=== PATIENT | female | born 1975 | race Caucasian/White ===

== ENCOUNTER 2017-01-16 11:35 | Emergency (ER) | payer MEDICAID ==
[2017-01-16 11:47] VITALS: BP 125/77; PULSE 73; RESP 18; TEMP 97.9; O2SAT 99
--- NOTE | 2017-01-16 12:29 | EDPHY ---
H & P Stated Complaint: LBP HPI/ROS: CHIEF COMPLAINT: Low back pain HISTORY OF PRESENT ILLNESS: Patient complains of low back pain over the past 1 week. This was sudden onset after bending over to sisal picker something. It is midline. It does not radiate. It is mild to moderate. It is located in the lower lumbar region. There is no numbness or tingling in any location. No incontinence of bowel or bladder. No retention of bowel or bladder. Pain is moderate to severe. It is worse with bending over and palpation. Minimal improvement with rest or lying on her back. She has taken [id number] anti -inflammatories with some improvement but not significant improvement. She has a history of disc bulge in the past. This was treated conservatively with rest for a period of 6-8 weeks. No surgical or physical therapy intervention at that time. She has not established with a spinal surgeon orthopedist for this. She denies any IV drug use, fever, chills, redness of the low back. No other associated complaints or modifying factors. REVIEW OF SYSTEMS: Ten systems reviewed and are negative unless otherwise noted in the HPI PAST MEDICAL HISTORY: IUD placement remotely, lumbar disc bulge last year SOCIAL HISTORY: Nonsmoker. Lives here in [facility] FAMILY HISTORY: Noncontributory EXAMINATION General Appearance: Alert, no distress Head: normocephalic, atraumatic Eyes: Pupils equal and round, no conjunctival pallor or injection ENT, Mouth: Mucous membranes moist Neck: Normal inspection, supple, non-tender Respiratory: No retractions or distress. Cardiovascular: Regular rate. Pulses intact distally symmetrically with 2+ DP and PT pulses Gastrointestinal: Abdomen is soft and nontender. No tympany rigidity Back: Tenderness in the low lumbar spine, lateral of midline. There is no bony crepitus, step-off or deformity. No tenderness to palpation of the midline portion of the spine. Neurological: A&O, nonfocal, normal gait prep patellar reflexes symmetric. Strength is 5/5 in all 4 limbs. Skin: Warm and dry, no rash. No erythema or cellulitis. No fluctuance at any location of the back Extremities: Nontender, no pedal edema Psychiatric: Mood and affect normal DIFFERENTIAL DIAGNOSES: Including but not limited to disc bulge, disc herniation, describe sugar, fracture, dislocation, sprain, strain MDM: 12:20 p.m. Acute low back pain without any evidence of acute cord compression or cauda equina. She is ambulatory without assistance. There is no weakness or deficit. Fully neuro intact. Discussed discharge home with medications for pain control muscle relaxant steroid. She is to follow up with primary care physician and Neurosurgery for further care and likely MRI. She is to return to the ER for any worsening pain, fever, weakness, sensory or motor changes. She is also to return for any incontinence of bowel or bladder, retention of bowel or bladder. She is comfortable with this plan and discharged home stable condition SUPERVISION: This patient was independently evaluated without direct examination by the attending physician. Case was discussed with attending physician. Source: Patient Exam Limitations: No limitations - Personal History LMP (Females 10-55): 1-7 Days Ago - Medical/Surgical History Hx Asthma: No Hx Chronic Respiratory Disease: No Hx Diabetes: No Hx Cardiac Disease: No Hx Renal Disease: No Hx Cirrhosis: No Hx Alcoholism: No Hx HIV/AIDS: No Hx Splenectomy or Spleen Trauma: No Other PMH: anxiety, d&c - Social History Smoking Status: Current some day smoker Constitutional: Initial Vital Signs Temperature (C) 97.9 F 01/16/17 11:43 Heart Rate 73 01/16/17 11:43 Respiratory Rate 18 01/16/17 11:43 Blood Pressure 125/77 H 01/16/17 11:43 O2 Sat (%) 99 01/16/17 11:43 O2 Delivery Mode Room Air Allergies/Adverse Reactions: No Known Allergies Allergy (Verified 01/16/17 11:42) Home Medications: Medication Instructions Recorded Cyclobenzaprine [Flexeril 10 MG 10 mg PO TID PRN #15 tab 01/16/17 (*)] methylPREDNISolone [Medrol Dose 1 each PO AD #0 ea 01/16/17 Phan] oxyCODONE HCL/ACETAMINOPHEN 1 each PO Q4-6PRN PRN #20 tablet 01/16/17 [Percocet 5-325 mg Tablet] Departure - Departure Disposition: Home, Routine, Self-Care Clinical Impression: Bulging lumbar disc Lumbar back pain Qualifiers: Chronicity: acute Back pain laterality: unspecified Sciatica presence: without sciatica Qualified Code(s): M54.5 - Low back pain Condition: Good Instructions: Lumbar Disc Herniation (ED), Low Back Strain (ED), Back Pain (ED) Additional Instructions: 1. Prescribed medications as needed 2. Follow up with primary care physician and Neurosurgery 3. Return to the ER for any worsening of pain, any fever, weakness, motor sensory changes, incontinence of bowel or bladder Referrals: [facility] [Other] - As per Instructions Antonio Renee MD [Medical Doctor] - As per Instructions Prescriptions: Cyclobenzaprine [Flexeril 10 MG (*)] 10 mg PO TID PRN #15 tab PRN Reason: Spasms methylPREDNISolone [Medrol Dose Phan] 1 each PO AD #0 ea oxyCODONE HCL/ACETAMINOPHEN [Percocet 5-325 mg Tablet] 1 each PO Q4-6PRN PRN # 20 tablet PRN Reason: Pain, Breakthrough
== END 2017-01-16 12:35 | disposition home or self-care (01) ==
DX: M51.36 Other intervertebral disc degeneration, lumbar region (principal); F17.200 Nicotine dependence, unspecified, uncomplicated

== ENCOUNTER 2017-04-09 17:33 | Emergency (ER) | payer MEDICAID ==
[2017-04-09 17:57] VITALS: TEMP 98.2
--- NOTE | 2017-04-09 18:57 | EDPHY ---
H & P Stated Complaint: back, thigh pain n/t, episodic, this episode since 1100 HPI/ROS: HPI CHIEF COMPLAINT: Back pain HISTORY OF PRESENT ILLNESS: pleasant 41 y.o Female, denies having any significant medical history except for 2-3 months of ongoing back pain. Patient reports over the past 2-3 months she has had intermittent back pain rather severe. Sharp stabbing radiates down her right leg worse than her left leg. Across her right anterior thigh. Patient reports to me that she has had multiple back adjustments by chiropractor with out any relief. She comes into the emergency room tonight as she states around noon today she developed worsening back pain. Sharp stabbing. Center of her low back lumbar region. Radiates down her gluteus bilaterally but not into her legs. At time she does field into her right anterior thigh. Does not go to her knee or foot. She denies any saddle anesthesia. Denies bowel or bladder incontinence. She does complain of bilateral leg weakness worse on the right than left. States she is having great deal difficulty of walking. Took ibuprofen prior to arrival which helped somewhat. Past Medical History: Denies significant medical history Past Surgical History: Denies significant surgical history Social History: Denies daily use drugs alcohol tobacco products. Family History: Noncontributory ROS REVIEW OF SYSTEMS: A comprehensive 10 point review of systems is otherwise negative aside from elements mentioned in the history of present illness. Exam Constitutional anxious, appears to be in pain, triage nursing summary reviewed , vital signs reviewed, awake/alert. Eyes normal conjunctivae and sclera, EOMI, PERRLA. HENT normal inspection, atraumatic, moist mucus membranes, no epistaxis, neck supple/ no meningismus, no raccoon eyes. Respiratory clear to auscultation bilaterally, normal breath sounds, no respiratory distress, no wheezing. Cardiovascular rate normal, regular rhythm, no murmur, no edema, distal pulses normal. Gastrointestinal soft, non-tender, no rebound, no guarding, normal bowel sounds, no distension, no pulsatile mass. Genitourinary no CVA tenderness. Musculoskeletal nontender palpation down midline lumbar, no midline vertebral tenderness, full range of motion, no calf swelling, no tenderness of extremities , no meningismus, good pulses, neurovascularly intact. Skin pink, warm, & dry, no rash, skin atraumatic. Neurologic awake, alert and oriented x 3, AAOx3, moves all 4 extremities equally, motor intact, sensory intact, CN II-XII intact, normal cerebellar, normal vision, normal speech. Psychiatric normal mood/affect. Heme/Lymph/Immune no lymphadenopathy. Differential Diagnosis: Includes but is not limited to in a particular order doubt acute cauda equina syndrome given no saddle anesthesia, nerve root contrast Medical Decision Making: Plan for this patient basic blood work, IV establishment fentanyl for pain control, Toradol for pain control. MRI lumbar spine without to help delineate her severe back pain. Re-evaluation: 2200: ED MRI lumbar spine reviewed. Disc disease with disc herniation at L4- L5. Additional disc herniation L5-S1. Causing nerve root compression on L5. As well as L5-S1. Most likely cause of her symptoms. Will place on pain medicine, rest, ice. Neurosurgery follow-up. Went over MRI with patient. She understands. No signs of cauda equina. Source: Patient - Personal History LMP (Females 10-55): 1-7 Days Ago Current Tetanus/Diphtheria Vaccine: Yes Current Tetanus Diphtheria and Acellular Pertussis (TDAP): Yes - Medical/Surgical History Hx Asthma: No Hx Chronic Respiratory Disease: No Hx Diabetes: No Hx Cardiac Disease: No Hx Renal Disease: No Hx Cirrhosis: No Hx Alcoholism: No Hx HIV/AIDS: No Hx Splenectomy or Spleen Trauma: No Other PMH: anxiety, d&c - Social History Smoking Status: Current some day smoker Constitutional: Initial Vital Signs Temperature (C) 36.8 C 04/09/17 17:54 Heart Rate 69 04/09/17 17:54 Respiratory Rate 16 04/09/17 17:54 Blood Pressure 135/103 H 04/09/17 17:54 O2 Sat (%) 99 04/09/17 17:54 O2 Delivery Mode Room Air Allergies/Adverse Reactions: No Known Allergies Allergy (Verified 04/09/17 17:53) Home Medications: Medication Instructions Recorded Hydrocodone/APAP 5/325 [Valencia 1 - 2 tab PO Q4H PRN #10 tab 04/09/17 5/325] Ibuprofen [Motrin (*)] 800 mg PO Q6-8PRN #10 tab 04/09/17 Medical Decision Making - Data Points Laboratory Results: Laboratory Results 04/09/17 19:30 04/09/17 19:30 04/09/17 04/09/17 19:30 19:30 WBC 5.05 10^3/uL 10^3/uL (3.80-9.50) RBC 4.49 10^6/uL 10^6/uL (4.18-5.33) Hgb 13.6 g/dL g/dL (12.6-16.3) Hct 41.7 % % (38.0-47.0) MCV 92.9 fL fL (81.5-99.8) MCH 30.3 pg pg (27.9-34.1) MCHC 32.6 g/dL g/dL (32.4-36.7) RDW 14.2 % % (11.5-15.2) Plt Count 221 10^3/uL 10^3/uL (150-400) MPV 9.9 fL fL (8.7-11.7) Neut % (Auto) 47.1 % % (39.3-74.2) Lymph % (Auto) 37.4 % % (15.0-45.0) [place] % (Auto) 12.5 % % (4.5-13.0) Eos % (Auto) 1.8 % % (0.6-7.6) Baso % (Auto) 0.8 % % (0.3-1.7) Nucleat RBC Rel Count 0.0 % % (0.0-0.2) Absolute Neuts (auto) 2.38 10^3/uL 10^3/uL (1.70-6.50) Absolute Lymphs (auto) 1.89 10^3/uL 10^3/uL (1.00-3.00) Absolute Monos (auto) 0.63 10^3/uL 10^3/uL (0.30-0.80) Absolute Eos (auto) 0.09 10^3/uL 10^3/uL (0.03-0.40) Absolute Basos (auto) 0.04 10^3/uL 10^3/uL (0.02-0.10) Absolute Nucleated RBC 0.00 10^3/uL 10^3/uL (0-0.01) Immature Gran % 0.4 % % (0.0-1.1) Immature Gran # 0.02 10^3/uL 10^3/uL (0.00-0.10) Sodium 140 mEq/L mEq/L (134-144) Potassium 3.9 mEq/L mEq/L (3.5-5.2) Chloride 103 mEq/L mEq/L (97-110) Carbon Dioxide 25 mEq/l mEq/l (22-31) Anion Gap 12 mEq/L mEq/L (8-16) BUN 12 mg/dL mg/dL (7-23) Creatinine 0.8 mg/dL mg/dL (0.6-1.0) Estimated GFR > 60 Glucose 85 mg/dL mg/dL (70-100) Calcium 9.8 mg/dL mg/dL (8.5-10.4) Medications Given: Discontinued Medications Fentanyl (Sublimaze) 50 mcg IVP EDNOW ONE Stop: 04/09/17 19:04 Last Admin: 04/09/17 19:56 Dose: 50 mcg Sodium Chloride (Ns) 1,000 mls @ 0 mls/hr IV EDNOW ONE; Wide Open PRN Reason: Protocol Stop: 04/09/17 19:04 Last Admin: 04/09/17 19:55 Dose: 1,000 mls Ketorolac Tromethamine (Toradol) 30 mg IVP EDNOW ONE Stop: 04/09/17 19:04 Last Admin: 04/09/17 19:56 Dose: 30 mg Departure - Departure Disposition: Home, Routine, Self-Care Clinical Impression: Back pain Qualifiers: Back pain location: low back pain Chronicity: acute Back pain laterality: unspecified Sciatica presence: with sciatica Sciatica laterality: sciatica of right side Qualified Code(s): M54.41 - Lumbago with sciatica, right side Condition: Good Instructions: Low Back Strain (ED), Acute Low Back Pain (ED), Lumbar Radiculopathy (ED) Additional Instructions: 1.Ibuprofen for mild pain. 2. Valencia for severe pain. 3. Ice her back. 4. Follow up with Neurosurgery. Referrals: [facility] [Other] - As per Instructions Evaristo Marquez MD [Medical Doctor] - As per Instructions Prescriptions: Hydrocodone/APAP 5/325 [Valencia 5/325] 1 - 2 tab PO Q4H PRN #10 tab PRN Reason: Pain, Moderate Ibuprofen [Motrin (*)] 800 mg PO Q6-8PRN #10 tab
[2017-04-09] MEDS ORDERED: KETOROLAC 30 MG/1 ML SDV IVP ONE (19:03)
[2017-04-09] MEDS ORDERED: NS 1,000 ML IV ONE (19:03)
[2017-04-09] MEDS ORDERED: fentaNYL 100 MCG/2 ML INJ IVP ONE (19:03)
[2017-04-09 19:39] LABS: % IMMATURE GRANULYOCYTES 0.4 % (0.0-1.1); ABSOLUTE IMMATURE GRANULOCYTES 0.02 10^3/uL (0.00-0.10); ADD DIFF? NO; ADD MORPH? NO; ADD SCAN? NO; ATYPICAL LYMPHOCYTE FLAG 50 (0-99); FRAGMENT RBC FLAG 0 (0-99); HEMATOCRIT 41.7 % (38.0-47.0); HEMOGLOBIN 13.6 g/dL (12.6-16.3); LEFT SHIFT FLG 10 (0-99); LIPEMIA HEMOLYSIS FLAG 80 (0-99); MEAN CELL HEMOGLOBIN 30.3 pg (27.9-34.1); MEAN CELL HEMOGLOBIN CONCENTR. 32.6 g/dL (32.4-36.7); MEAN CELL VOLUME 92.9 fL (81.5-99.8); MEAN PLATELET VOLUME 9.9 fL (8.7-11.7); PLATELET CLUMPS FLAG 0 (0-99); PLATELET COUNT 221 10^3/uL (150-400); RED BLOOD CELL COUNT 4.49 10^6/uL (4.18-5.33); RED CELL DISTRIBUTION WIDTH 14.2 % (11.5-15.2)
[2017-04-09 19:51] LABS: ANION GAP 12 mEq/L (8-16); CALCIUM 9.8 mg/dL (8.5-10.4); CARBON DIOXIDE 25 mEq/l (22-31); CHLORIDE 103 mEq/L (97-110); CREATININE 0.8 mg/dL (0.6-1.0); GLOMERULAR FILTRATION RATE > 60; GLUCOSE 85 mg/dL (70-100); POTASSIUM 3.9 mEq/L (3.5-5.2); SODIUM 140 mEq/L (134-144)
[2017-04-09 22:00] VITALS: BP 126/57; PULSE 55; RESP 18; O2SAT 99
[2017-04-09] MEDS ORDERED: HYDROCOD/APAP 5/325 PREPACK#6 BTL TAKEHOME ONE ×2 (22:06→22:09)
== END 2017-04-09 22:16 | disposition home or self-care (01) ==
DX: M54.41 Lumbago with sciatica, right side (principal); F17.200 Nicotine dependence, unspecified, uncomplicated
CPT/HCPCS: 96374; J1885; J3010

== ENCOUNTER 2017-04-25 12:59 | Day surgery (SDC) | payer MEDICAID ==
[2017-04-25] MEDS ORDERED: IOPAMIDOL (ISOVUE-M 300) 15 ML VIAL ONE (15:49)
[2017-04-25] MEDS ORDERED: TRIAMCINOLONE ACETONIDE 200 MG/5 ML MDV IM ONE (15:50)
== END 2017-04-25 15:40 | disposition home or self-care (01) ==
LOC: FIMAGING 12:59
PROVIDERS: ATTEND Neurological Surgery
PROC: 3E0S3BZ Introduction of Anesthetic Agent into Epidural Space, Percutaneous Approach (ICD-10-PCS; principal; 2017-04-25)
PROC: 3E0S33Z Introduction of Anti-inflammatory into Epidural Space, Percutaneous Approach (ICD-10-PCS; principal; 2017-04-25)
DX: M51.17 Intervertebral disc disorders with radiculopathy, lumbosacral region (principal); M51.27 Other intervertebral disc displacement, lumbosacral region
CPT/HCPCS: J3301; Q9967

== ENCOUNTER 2017-06-15 10:32 | Day surgery (SDC) | payer MEDICAID ==
[2017-06-15] MEDS ORDERED: LR 1,000 ML IV ONE (10:52)
[2017-06-15] MEDS ORDERED: MIDAZOLAM 2 MG/2 ML VIAL IVP ONE (12:06)
--- NOTE | 2017-06-15 12:08 | PDANEPAE ---
ANE Past Medical History - Cardiovascular History Hx Hypertension: No Hx Arrhythmias: No Hx Chest Pain: No Hx Coronary Artery / Peripheral Vascular Disease: No Hx CHF / Valvular Disease: No Hx Palpitations: No - Pulmonary History Hx COPD: No Hx Asthma/Reactive Airway Disease: No Hx Recent Upper Respiratory Infection: No Hx Oxygen in Use at Home: No Hx Sleep Apnea: No - Endocrine History Hx Diabetes: No Hypothyroid: No Hyperthyroid: No Obesity: no ANE Review of Systems Review of Systems: - Exercise capacity Exercise capacity: >=4 METS ANE Patient History - Allergies Allergies/Adverse Reactions: No Known Allergies Allergy (Verified 06/15/17 10:55) - NPO status NPO Since - Liquids (Date): 06/14/17 NPO Since - Liquids (Time): 21:00 NPO Since - Solids (Date): 06/14/17 NPO Since - Solids (Time): 21:00 - Anes Hx Anes Hx: no prior problems - Smoking Hx Smoking Status: Current some day smoker (1/2 PPD) ANE Labs/Vital Signs - Vital Signs Blood Pressure: 112/71 Heart Rate: 82 Respiratory Rate: 17 O2 Sat (%): 97 ANE Physical Exam - Airway Neck exam: FROM Mallampati Score: Class 1 Mouth exam: normal dental/mouth exam - Pulmonary Pulmonary: no respiratory distress, no rales or rhonchi, clear to auscultation - Cardiovascular Cardiovascular: regular rate and rhythym, no murmur, rub, or gallop - ASA Status ASA Status: II ANE Anesthesia Plan Anesthesia Plan: GA with mask
[2017-06-15] MEDS ORDERED: PROPOFOL 200 MG/20 ML VIAL ONE ×2 (12:25→13:05)
[2017-06-15] MEDS ORDERED: fentaNYL 100 MCG/2 ML INJ IVP PRN (12:47)
[2017-06-15] MEDS ORDERED: PROMETHAZINE HCL 25 MG/ML INJ IVP PRN (12:47)
[2017-06-15] MEDS ORDERED: ONDANSETRON 4 MG/2 ML VIAL IVP PRN (12:47)
[2017-06-15] MEDS ORDERED: HYDROCODONE/APAP 5/325 TAB PO PRN (12:47)
[2017-06-15] MEDS ORDERED: NALOXONE HCL 0.4 MG/ML INJ IVP PRN (12:47)
[2017-06-15] MEDS ORDERED: LR 500 ML IV PRN (12:47)
--- NOTE | 2017-06-15 12:47 | PDGENHP ---
History & Physical Chief Complaint: fhx colon polyps young age and other cancers History of Present Illness: fhx polyps Pertinent Past, Social, Family History: tobacco 8 cigs per day. alcohol none. Great Aunt with cancecer at ytoung age Relevant Physical Exam: A+Ox3. CTA. S1S2. +BS soft nt Cardiorespiratory Assessment: class 2
--- NOTE | 2017-06-15 13:22 | GIREPORT ---
[facility] - Endoscopy Department Patient Name: Nicki Bejarano Procedure Date: 06/15/2017 12:23 PM Patient Type: Outpatient Attending MD/ ER Physician: Zhou De Leon Procedure: Colonoscopy Indications: Colon cancer screening in patient at increased risk: Family history of 1st-degree relative with colon polyps before age 60 years Providers: Kunal Almeida MD Referring MD: please send to her PCP Apoorva Medicines: Total IV Anesthesia (TIVA) = IV general Complications: No immediate complications. Estimated blood loss: Minimal. Description of Procedure: After obtaining informed consent, the scope was passed under direct vis ion. Throughout the procedure, the patient's blood pressure, pulse, and oxyg en saturations were monitored continuously. The Colonoscope with irrigatio n channel was introduced through the anus and advanced to the terminal il eum, with identification of the appendiceal orifice and IC valve. The colono scopy was performed without difficulty. The patient tolerated the procedure w ell. The quality of the bowel preparation was good. Findings: The digital rectal exam was normal. The terminal ileum appeared normal. A 3 mm polyp was found in the ascending colon. The polyp was sessile. T he polyp was removed with a cold biopsy forceps. Resection and retrieval w ere complete. Estimated blood loss was minimal. A 6 mm polyp was found in the distal transverse colon. The polyp was sessile. The polyp was removed with a cold snare. Resection and retriev al were complete. Estimated blood loss was minimal. The exam was otherwise without abnormality on direct and retroflexion v iews. Estimated Blood Loss: Estimated blood loss was minimal. Post Op Diagnosis: - The examined portion of the ileum was normal. - One 3 mm polyp in the ascending colon, removed with a cold biopsy for ceps. Resected and retrieved. - One 6 mm polyp in the distal transverse colon, removed with a cold sn are. Resected and retrieved. - The examination was otherwise normal on direct and retroflexion views . Recommendation: - Await pathology results. - My office will call with the pathology result with 5-7 days. If you h ave not heard from my office by 14, do not assume the pathology is mabel l, please call [phone] to get the pathology results. - Repeat colonoscopy in 2 years for surveillance. - Follow-up in our genetic clinic as scheduled. If they feel genetic syndrome is unlikely, I may increase the interval to 5 years. - High fiber diet. - Patient has a contact number available for emergencies. The signs and symptoms of potential delayed complications were discussed with the pat ient. Return to normal activities tomorrow. Written discharge instructions we re provided to the patient. - Continue present medications. - Discharge patient to home (ambulatory). - Return to primary care physician as previously scheduled. - Thank you for allowing me to help in your patient's care. Do not hesi benton to call with any questions. Attending Participation: I personally performed the entire procedure. Elle Syed M.D Kunal Almeida MD 06/15/2017 1:22:29 PM This report has been signed electronicallyMathew MD Elle Number of Addenda: 0 Note Initiated On: 06/15/2017 12:23 PM Total Procedure Duration Time 0 hours 14 minutes 32 seconds [email or web address]
[2017-06-15 13:24] VITALS: TEMP 97.9
--- NOTE | 2017-06-15 13:24 | POSTOPPROG ---
Post Op Note Date of Operation: 06/15/17 Surgeon: Betito Almeida Anesthesiologist: Jose Luis Carson MD Anesthesia: Other (Specify) (IV general) Pre-op Diagnosis: fhx polyps at young age Post-op Diagnosis: small ascedning polyp, medium transverse polyp Indication: fhx polyps -- possible genetic syndrome in family Procedure: colon and bx and snare Findings: 3 mm ascednig colon polyp, 6 mm transervse colon polyp Inf/Abcess present in the surg proc area at time of surgery?: No EBL: Minimal (few ml) Total fluids administered: 300 ml LR Complications: none immediate
--- NOTE | 2017-06-15 13:25 | POSTANESTH ---
Post Anesthetic Evaluation Cardiovascular Status: Normal, Stable, Similar to Pre-Op Cond Respiratory Status: Normal, Stable, Similar to Pre-op Cond. Level of Consciousness/Mental Status: Can Participate in Eval, Mildly Sleepy, Arousable Pain Control: Adequate, Prn Tx Ordered Nausea/Vomiting Control: Adequate, Prn Tx Ordered Complications Possibly Related to Anesthesia: None Noted
[2017-06-15 13:55] VITALS: BP 106/70; PULSE 68; RESP 16; O2SAT 99
== END 2017-06-15 14:05 | disposition home or self-care (01) ==
LOC: FSGY 10:32
PROVIDERS: ATTEND Internal Medicine Gastroenterology
DX: Z12.11 Encounter for screening for malignant neoplasm of colon (principal); K63.5 Polyp of colon; F17.210 Nicotine dependence, cigarettes, uncomplicated; Z83.71 Family history of colonic polyps; Z80.0 Family history of malignant neoplasm of digestive organs
CPT/HCPCS: J2250; J2704

== ENCOUNTER 2017-08-02 14:17 | Day surgery (SDC) | payer MEDICAID ==
[2017-08-02] MEDS ORDERED: IOPAMIDOL (ISOVUE-M 300) 15 ML VIAL ONE (15:04)
[2017-08-02] MEDS ORDERED: TRIAMCINOLONE ACETONIDE 200 MG/5 ML MDV IM ONE (15:04)
== END 2017-08-02 15:15 | disposition home or self-care (01) ==
LOC: FIMAGING 14:17
PROVIDERS: ATTEND Neurological Surgery
PROC: 3E0S33Z Introduction of Anti-inflammatory into Epidural Space, Percutaneous Approach (ICD-10-PCS; principal; 2017-08-02)
DX: M54.5 Low back pain (principal); M51.17 Intervertebral disc disorders with radiculopathy, lumbosacral region
CPT/HCPCS: J3301; Q9967

== ENCOUNTER → 2018-04-02 | Outpatient (CLI) | payer MEDICAID | LOC: FIMAGING 03-26 08:04 | PROVIDERS: ATTEND Neurological Surgery | DX: M51.17 Intervertebral disc disorders with radiculopathy, lumbosacral region (principal); Z53.09 Procedure and treatment not carried out because of other contraindication ==